=== PATIENT | female | born 1940 | race Hispanic/Latino ===

== ENCOUNTER → 2017-07-29 | Day surgery (SDC) | payer BC, OTHER ==
[~2017-07-29] MED LIST: AMLODIPINE BESY10 MG PO; CALCIUM 500+D1 EACH PO; FENTANYL CITRATE/PF 100MCG/2 ML INJ ONE; HYDROXYCHLOROQ200 MG PO; MELOXICAM7.5 MG PO; MIDAZOLAM HCL 2 MG/2 ML VIAL ONE; OMEGA-31000 MG PO; ONCE DAILY1 EACH PO; OR PHACO EYE KIT ONE; OXYBUTYNIN CHLOR5 MG PO; PRAVASTATIN SOD20 MG PO; PREDNISONE5 MG PO; PREOP PHACO EYE KIT ONE; SPIRONOLACTONE25 MG PO; VITAMIN E400 UNI2 PO
== END | disposition home or self-care (01) ==
LOC: OR 10:58
PROVIDERS: ATTEND Ophthalmology
DX: H25.12 Age-related nuclear cataract, left eye (principal); I10 Essential (primary) hypertension; E78.5 Hyperlipidemia, unspecified; M06.9 Rheumatoid arthritis, unspecified; M54.16 Radiculopathy, lumbar region
CPT/HCPCS: 66984; J2250; V2632

== ENCOUNTER → 2017-08-12 | Day surgery (SDC) | payer BC, OTHER ==
[~2017-08-12] MED LIST changes: -OR PHACO EYE KIT ONE; -PREOP PHACO EYE KIT ONE
== END | disposition home or self-care (01) ==
LOC: OR 10:25
PROVIDERS: ATTEND Ophthalmology
DX: H25.11 Age-related nuclear cataract, right eye (principal); M19.90 Unspecified osteoarthritis, unspecified site; I10 Essential (primary) hypertension; E78.5 Hyperlipidemia, unspecified; E11.9 Type 2 diabetes mellitus without complications; M06.4 Inflammatory polyarthropathy; M54.16 Radiculopathy, lumbar region
CPT/HCPCS: 66984; J2250; V2632

== ENCOUNTER 2019-04-28 17:52 | Emergency (ER) | payer BC, MEDICARE ==
[~2019-04-28] VITALS: Ht 152.4 cm; Wt 54.4 kg
[~2019-04-28 17:52] MED LIST changes: -FENTANYL CITRATE/PF 100MCG/2 ML INJ ONE; -MIDAZOLAM HCL 2 MG/2 ML VIAL ONE
[2019-04-28] MEDS ORDERED: ACETAMINOPHEN 325 MG TAB PO ONE (18:15)
--- NOTE | 2019-04-28 19:36 | Diagnostic Imaging Report ---
EXAMINATION: Head CT without contrast. HISTORY:Status post fall. COMPARISON:None. TECHNIQUE: Multidetector axial images were obtained from the foramen magnum to the vertex without contrast. The images were reconstructed using brain and bone algorithms. Thin section brain images were reformatted into coronal and sagittal planes. Dose modulation, iterative reconstruction, and/or weight based adjustment of the mA/kV was utilized to reduce the radiation dose to as low as reasonably achievable. Intravenous contrast: None IMAGE QUALITY: Acceptable. FINDINGS: Skull/scalp: Mild right parietal scalp soft tissue edema. No radiopaque foreign body are normal soft tissue emphysema. No acute calvarial fracture. No lytic or blastic. lesions. No surgical changes. Parenchyma: Nonspecific few, scattered supratentorial white matter hypodensity are likely related to small vessel ischemic changes. Focal hypodensity in bilateral subinsular region, left genu and posterior limb of internal capsule represents chronic lacunar infarct. No acute hemorrhage, mass or acute major vascular territorial infarct. Arteries: No density suggestive of thrombosis. Atherosclerotic calcification in bilateral carotid siphon and V4 segment of the vertebral arteries. Dural sinuses: No abnormal density suggestive of thrombosis. Ventricles: No hydrocephalus or displacement. Extra-axial spaces: No abnormal density. Brain volume: Mild generalized cerebral volume loss. Craniocervical junction: No mass, Chiari malformation, or basilar invagination. Sella: No mass. Paranasal/mastoid sinuses: Imaged portions unremarkable. IMPRESSION: 1. Mild right parietal scalp soft tissue edema. No acute fracture. 2. No acute posttraumatic intracranial abnormality. 3. Mild supratentorial white matter microvascular ischemic changes and chronic lacunar infarcts. 4. Mild generalized cerebral volume loss. Signed by: Dr. Heidy Espinal M.D. on 04/28/2019 7:33 PM
--- NOTE | 2019-04-28 19:42 | Diagnostic Imaging Report ---
History: Status post fall. Comparison studies: None Technique: Axial images were obtained through the cervical region.. Coronal and sagittal images reconstructed from the axial data. Dose modulation, iterative reconstruction, and/or weight based adjustment of the mA/kV was utilized to reduce the radiation dose to as low as reasonably achievable. Intravenous contrast: None Findings: Fractures: None. Soft tissue injuries: None. Atlantoaxial articulation: Intact. Alignment: Reversal of normal cervical lordosis is either due to muscle spasm or degenerative changes. No scoliosis. 2 mm grade 1 anterolisthesis at C3-C4, C4-C5 are likely degenerative. Cervicomedullary junction: No abnormalities. The foramen magnum is patent. Soft tissues: No abnormalities. Vertebrae: No fractures, infection or neoplasm. Degenerative changes: C2-C3: Advanced left facet arthrosis without significant foraminal stenosis. C3-C4: Moderate bilateral foraminal stenosis due to facet and uncovertebral arthrosis. C4-C5: Mild right and moderate left foraminal stenosis due to facet and uncovertebral arthrosis. C5-C6: Moderate degenerative disc disease. Moderate right and mild left foraminal stenosis due to facet and uncovertebral arthrosis. C6-C7: Mild right and moderate left foraminal stenosis due to uncovertebral arthrosis.. IMPRESSION: 1. No acute cervical spine fracture or dislocation. Reversal of normal cervical lordosis is either due to muscle spasm or degenerative changes. 2. Ligament, spinal cord and or vascular abnormalities cannot be excluded on the basis of this examination. 3. Cervical spondylosis as detailed above. Signed by: Dr. Heidy Espinal M.D. on 04/28/2019 7:38 PM
[2019-04-29 07:11] VITALS: BP 122/79
--- OUTSIDE RECORDS SUMMARY | 2019-04-30 14:00 | XMS REPORT ---
Author [facility] Address Unknown Phone Unavailable Care Team Providers Care Food Sampler Name Role Phone Melania GARCIA Unavailable Unavailable Payers Payer Name Policy Type Policy Number Effective Date Expiration Date Problems This patient has no known problems. Allergies, Adverse Reactions, Alerts This patient has no known allergies or adverse reactions. Medications This patient has no known medications. Encounters Start Date/Time End Date/Time Encounter Type Admission Type Attending Clinicians Care Facility Care Department Encounter ID 2018-07-28 13:24:00 2018-07-28 13:24:00 Emergency [id number] Results Test Description Test Time Test Comments Text Results Atomic Results Result Comments CT CERVICAL SPINE WO 2019-04-28 19:33:00 [place] [address] Patient Name: SCOTT HUFF MR #: [id number] : 1940 Age/Sex: 78/F Req #: [id number] Adm Physician: Ordered by: HARLEEN AGUIRRE [employer] OPERATOR Report #: [id number] Location: ER Room/Bed: Procedure: [id number] CT/CT CERVICAL SPINE WO Exam Date: 04/28/19 Exam Time: 1811 REPORT STATUS: Signed History: Status post fall. Comparison studies: No ne Technique: Axial images were obtained through the cervical region.. Coronal and sagittal images reconstructed from the axial data. Dose modulation, iterative reconstruction, and/or weight based adjustment of the mA/kV was utilized to reduce the radiation dose to as low as reasonably achievable. Intravenous contrast: None Findings: Fractures: None. Soft tissue injuries: None. Atlantoaxial articulation: Intact. Alignment: Reversal of normal cervical lordosis is either due to muscle spasm or degenerative changes. No scoliosis. 2 mm grade 1 anterolisthesis at C3-C4, C4-C5 are likely degenerative. Cervicomedullary junction: No abnormalities. The foramen magnum is patent. Soft tissues: No abnormalities. Vertebrae: No fractures, infection or neoplasm. Degenerative changes: C2-C3: Advanced left facet arthrosis without significant foraminal stenosis. C3-C4: Moderate bilateral foraminal stenosis due to facet and uncovertebral arthrosi s. C4-C5: Mild right and moderate left foraminal stenosis due to facet and uncovertebral arthrosis. C5-C6: Moderate degenerative disc disease. Moderate right and mild left foraminal stenosis due to facet and uncovertebral arthrosis. C6-C7: Mild right and moderate left foraminal stenosis due to uncovertebral arthrosis.. IMPRESSION: 1. No acute cervical spine fracture or dislocation. Reversal of normal cervical lordosis is either due to muscle spasm or degenerative changes. 2. Ligament, spinal cord and or vascular abnormalities cannot be excluded on the basis of this examination. 3. Cervical spondylosis as detailed above. Signed by: Dr. Heidy Espinal M.D. on 04/28/2019 7:38 PM Dictated By: HEIDY ESPINAL MD 37 Transcribed By: ADAM on 04/28/191937 COPY TO: HARLEEN AGUIRRE NP CT BRAIN WO 2019-04-28 19:28:00 [place] [address] Patient Name: SCOTT HUFF MR #: [id number] : 1940 Age/Sex: 78/F Req #: [id number] Adm Physician: Ordered by: HARLEEN AGUIRRE NP Report #: [id number] Location: ER Room/Bed: Procedure: [id number] CT/CT BRAIN WO Exam Date: 04/28/19 Exam Time: 1811 REPORT STATUS: Signed EXAMINATION: Head CT without contrast. HISTORY:Stat us post fall. COMPARISON:None. TECHNIQUE: Multidetector axial images were obtained from the foramen magnum to the vertex without contrast. The images were reconstructed using brain and bone algorithms. Thin section brain images were reformatted into coronal and sagittal planes. Dose modulation, iterative reconstruction, and/or weight based adjustment of the mA/kV was utilized to reduce the radiation dose to as low as reasonably achievable. Intravenous contrast: None IMAGE QUALITY: Acceptable. FINDINGS: Skull/scalp: Mild right parietal scalp soft tissue edema. No radiopaque foreign body are normal soft tissue emphysema. No acute calvarial fracture. No lytic or blastic. lesions. No surgical changes. Parenchyma: Nonspecific few, scattered supratentorial white matter hypodensity are likely related to small vessel ischemic changes. Focal hypodensity in bilateral subinsular region, left genu and posterior limb of internal capsule represents chronic lacunar infarct. No acute hemorrhage, mass or acute major vascular territorial infarct. Arteries: No density suggestive of thrombosis. Atherosclerotic calcification in bilateral carotid siphon and V4 segment of the vertebral arteries. Dural sinuses: No abnormal density suggestive of thrombosis. Ventricles: No hydrocephalus or displacement. Extra-axial spaces: No abnormal density. Brain volume: Mild generalized cerebral volume loss. Craniocervical junction: No mass, Chiari malformation, or basilar invagination. Sella: No mass. Paranasal/mastoid sinuses: Imaged portions unremarkable. IMPRESSION: 1. Mild right parietal scalp soft tissue edema. No acute fracture. 2. No acute posttraumatic intracranial abnormality. 3. Mild supratentorial white matter microvascular ischemic changes and chronic lacunar infarcts. 4. Mild generalized cerebral volume loss. Signed by: Dr. Heidy Espinal M.D. on 04/28/2019 7:33 PM Dictated By: HEIDY ESPINAL MD 32 Transcribed By: ADAM on 04/28/191932 COPY TO: HARLEEN AGUIRRE NP
== END 2019-04-28 19:45 | disposition home or self-care (01) ==
LOC: ER 17:52
DX: S00.83XA Contusion of other part of head, initial encounter (principal); M54.2 Cervicalgia; W01.0XXA Fall on same level from slipping, tripping and stumbling without subsequent striking against object, initial encounter; Y92.008 Other place in unspecified non-institutional (private) residence as the place of occurrence of the external cause
CPT/HCPCS: 70450; 72125; 99283